=== PATIENT | male | born 1960 | race Caucasian/White ===

== ENCOUNTER → 2024-01-02 13:35 | Outpatient (REF) | payer BC, SELFPAY | LOC: RAD 13:35 | PROVIDERS: ATTENDING PHYSICIAN Family Medicine | DX: I82.492 Acute embolism and thrombosis of other specified deep vein of left lower extremity (principal) | CPT/HCPCS: 93971 ==

== ENCOUNTER → 2024-03-11 15:21 | Outpatient (REF) | payer BC, SELFPAY | LOC: HWRAD 15:21 | PROVIDERS: ATTENDING PHYSICIAN Family Medicine | DX: R05.9 Cough, unspecified (principal) | CPT/HCPCS: 71046 ==

== ENCOUNTER → 2024-04-02 09:14 | Outpatient (REF) | payer BC, SELFPAY | LOC: HWRAD 09:14 | PROVIDERS: ATTENDING PHYSICIAN Family Medicine | DX: K21.9 Gastro-esophageal reflux disease without esophagitis (principal) | CPT/HCPCS: 76700 ==

== ENCOUNTER → 2024-09-23 16:23 | Outpatient (REF) | payer BC, SELFPAY ==
[2024-09-23 17:11] LABS: Blood Urea Nitrogen 19 mg/dl (9-20); Calcium 9.6 mg/dl (8.4-10.2); Carbon Dioxide 30 mmol/L (22-30); Chloride 105 mmol/L (98-107); Glucose 93 mg/dl (70-99); Potassium 4.2 mmol/L (3.5-5.1); Sodium 143 mmol/L (135-145); eGFR > 60.00
== END ==
LOC: REG 16:23
PROVIDERS: ATTENDING PHYSICIAN Family Medicine
DX: R10.32 Left lower quadrant pain (principal)
CPT/HCPCS: 36415; 74178; 80048; Q9967

== ENCOUNTER → 2024-11-21 08:19 | Outpatient (REF) | payer BC, SELFPAY | LOC: MRI 3T 08:19 | PROVIDERS: ATTENDING PHYSICIAN Surgery; FAMILY PHYSICIAN Family Medicine | DX: K63.2 Fistula of intestine (principal) | CPT/HCPCS: 72197; A9575 ==

== ENCOUNTER → 2025-04-21 11:57 | Outpatient (REF) | payer MEDICARE, OTHER, SELFPAY | LOC: REG 11:57 | PROVIDERS: ATTENDING PHYSICIAN Family Medicine | DX: R05.1 Acute cough (principal) | CPT/HCPCS: 71046 ==